=== PATIENT | female | born 1995 | race African-American/Black ===

== ENCOUNTER 2017-11-18 16:00 | Observation (INO) | payer OTHER ==
[2017-11-18 16:46] VITALS: BP 98/60
[2017-11-18] MEDS ORDERED: PREN1TAB89 PO (16:50)
== END 2017-11-18 18:30 | disposition home or self-care (01) ==
LOC: 4S 16:00
PROVIDERS: ADMIT Obstetrics & Gynecology; ATTEND Obstetrics & Gynecology
DX: O46.93 Antepartum hemorrhage, unspecified, third trimester (principal); Z3A.33 33 weeks gestation of pregnancy
CPT/HCPCS: 59025; 76805; G0378

== ENCOUNTER 2018-09-05 03:41 | Emergency (ER) | payer OTHER ==
[~2018-09-05] VITALS: Ht 165.1 cm; Wt 50.0 kg
[~2018-09-05 03:41] MED LIST: PREN1TAB89 PO
[2018-09-05 03:46] VITALS: BP 112/72
== END 2018-09-05 04:50 | disposition left against medical advice (07) ==
LOC: EMS 03:42
DX: L02.414 Cutaneous abscess of left upper limb (principal); Z53.21 Procedure and treatment not carried out due to patient leaving prior to being seen by health care provider